=== PATIENT | male | born 1985 ===

== ENCOUNTER 2021-05-21 16:30 | Emergency (ER) | payer SELFPAY ==
[~2021-05-21] VITALS: Ht 167.6 cm; Wt 86.2 kg
[2021-05-21 16:30] VITALS: BP 118/78
== END 2021-05-21 17:37 | disposition left against medical advice (07) ==
LOC: EDBD 16:39 → ER 16:39
DX: R10.9 Unspecified abdominal pain (principal); Z53.21 Procedure and treatment not carried out due to patient leaving prior to being seen by health care provider